=== PATIENT | male | born 1985 | race Asian ===

== ENCOUNTER 2020-12-10 06:12 | Day surgery (SDC) | payer OTHER ==
[~2020-12-10] VITALS: Ht 175.3 cm; Wt 83.9 kg
[2020-12-10] MEDS ORDERED: diphenhydrAMINE 50 MG/ML VIAL ONE (07:30)
[2020-12-10] MEDS ORDERED: MIDAZOLAM 5 MG/5 ML VIAL ONE (07:30)
[2020-12-10] MEDS ORDERED: fentaNYL citrate 0.05 MG/ML VIAL ONE ×2 (07:30)
[2020-12-10] MEDS: MIDAZOLAM 2 MG/2 ML VIAL IVP ONE (07:31)
[2020-12-10] MEDS: fentaNYL citrate 0.05 MG/ML VIAL IVP ONE (07:32)
[2020-12-10] MEDS: LIDOCAINE 2% 100 MG/5 ML UJET TP ONE (07:34)
== END 2020-12-10 08:20 | disposition home or self-care (01) ==
LOC: MDS 06:12 → MMU 06:12 → MDS 08:20
PROVIDERS: ATTEND Internal Medicine Gastroenterology
DX: R10.9 Unspecified abdominal pain (principal); D12.4 Benign neoplasm of descending colon; D12.0 Benign neoplasm of cecum; K30 Functional dyspepsia; K21.9 Gastro-esophageal reflux disease without esophagitis; Z79.899 Other long term (current) drug therapy
CPT/HCPCS: 45380; 45385; J2250; J3010; J1200

== ENCOUNTER 2022-03-31 08:00 | Day surgery (SDC) | payer OTHER ==
[~2022-03-31] VITALS: Ht 175.3 cm; Wt 86.2 kg
[2022-03-31] MEDS ORDERED: fentaNYL citrate 0.05 MG/ML VIAL ONE (09:58)
[2022-03-31] MEDS ORDERED: MIDAZOLAM 5 MG/5 ML VIAL ONE (09:58)
[2022-03-31] MEDS ORDERED: diphenhydrAMINE 50 MG/ML VIAL ONE (09:58)
[2022-03-31] MEDS ORDERED: diphenhydrAMINE 50 MG/ML VIAL IVP ONE (12:15)
[2022-03-31] MEDS ORDERED: MIDAZOLAM 2 MG/2 ML VIAL IVP ONE (12:15)
[2022-03-31] MEDS ORDERED: fentaNYL citrate 0.05 MG/ML VIAL IVP ONE (12:15)
== END 2022-03-31 11:25 | disposition home or self-care (01) ==
LOC: MDS 08:00 → MMU 08:00 → MDS 11:25
PROVIDERS: ATTEND Internal Medicine Gastroenterology
DX: R10.13 Epigastric pain (principal); K29.50 Unspecified chronic gastritis without bleeding; K21.9 Gastro-esophageal reflux disease without esophagitis; K52.9 Noninfective gastroenteritis and colitis, unspecified; Z79.899 Other long term (current) drug therapy; Z20.822 Contact with and (suspected) exposure to COVID-19
CPT/HCPCS: 43239; 87426; J1200; J2250; J3010

== ENCOUNTER 2023-10-05 08:04 | Day surgery (SDC) | payer OTHER ==
[2023-10-05] MEDS ORDERED: fentaNYL citrate 0.05 MG/ML VIAL ONE (08:55)
[2023-10-05] MEDS ORDERED: MIDAZOLAM 5 MG/5 ML VIAL ONE (08:55)
[2023-10-05] MEDS: MIDAZOLAM 2 MG/2 ML VIAL IVP ONE (09:10)
== END 2023-10-05 10:12 | disposition home or self-care (01) ==
LOC: MDS 08:04 → MMU 08:05 → MDS 10:12
PROVIDERS: ATTEND Internal Medicine Gastroenterology
DX: K31.A0 Gastric intestinal metaplasia, unspecified (principal); K21.9 Gastro-esophageal reflux disease without esophagitis; K63.0 Abscess of intestine; Z98.890 Other specified postprocedural states
CPT/HCPCS: 43239; J2250; 88305; 88312; 88313; 88342; J3010